=== PATIENT | male | born 1970 ===

== ENCOUNTER 2022-06-07 11:51 | Emergency (ER) | payer OTHER, SELFPAY ==
[2022-06-07 11:55] VITALS: BP 144/96; PULSE 100; RESP 18; TEMP 36.6; O2SAT 99; BMI 30.7
[2022-06-07 11:59] VITALS: O2SAT 97
--- NOTE | 2022-06-07 11:59 | CRLHL7_ITS ---
For Patients: As a result of the Cures Act, medical imaging exams and procedure reports are released immediately into your electronic medical record. You may view this report before your referring provider. If you have questions, please contact your health care provider. INDICATION: Cough. TECHNIQUE: One-view chest. COMPARISON: None. FINDINGS: There is mild hazy left suprahilar opacity. The lungs are otherwise clear. No pleural effusion or pneumothorax is detected. The cardiac silhouette and pulmonary vascularity are within normal limits. IMPRESSION: Mild hazy suprahilar opacity, suspicious for pneumonia in the proper clinical context. Recommend repeat radiographs in 6-8 weeks to ensure resolution. Dictated by Jose Echeverria MD @ 06/07/2022 1:20:53 PM (Electronically Signed)
--- NOTE | 2022-06-07 12:30 | ED_ITS ---
HPI - General Adult General Time Seen by Provider: 12:30 Date Seen: 06/07/22 Chief complaint: Weakness Stated complaint: Low o2, elevated heartrate, weak Time Seen by Provider: 06/07/22 11:59 Source: patient and RN notes reviewed Mode of arrival: ambulatory Limitations: no limitations History of Present Illness HPI narrative: Patient is here for evaluation of elevated heart rate, not feeling well. Has been quite ill with significant coughing the last 2 days. Has had some chest burning type symptoms with this. Cough is nonproductive. No noted fevers but has felt hot and maybe febrile at times. Has checked temperature at home and has been normal. No nausea vomiting or diarrhea. Coughing is quite significant to the point he feels he can not breathe at times. Has known asymptomatic coronary artery disease, probable history of undiagnosed asthma. Nonsmoker. Son at home has tested positive for COVID yesterday. Patient's history is complicated by the fact that he has been having respiratory issues since beginning of April. He had cold-type symptoms, improved and then started having significant coughing night sweats and probable fever, triple swab was negative at that time and patient was initiated on doxycycline. Did seemingly improve. Cough never completely went away but over the last 2 days symptoms really escalated again. Earlier today checked a pulse oximeter at home and O2 sats were 96% but pulse was in the 120 range. Related Data Home Medications Medication Instructions Recorded Confirmed rosuvastatin 10 mg tablet mg 06/07/22 Previous Rx's Medication Instructions Recorded doxycycline monohydrate 100 mg 100 mg PO BID #20 caps 05/14/22 capsule nirmatrelvir 300 mg (150 mg See Rx Instructions PO .COMPLEX 06/07/22 x2)-ritonavir 100 mg tablet,dose #30 ea pack(EUA) (Paxlovid) Allergies Allergy/AdvReac Type Severity Reaction Status Date / Time Penicillins Allergy Verified 06/07/22 11:58 Sulfa (Sulfonamide Allergy Verified 06/07/22 11:58 Antibiotics) Review of Systems Status of ROS: Reports: 6 or more systems reviewed and unremarkable except as noted in History and below PFSH PFSH Social History Smoking Status: Unknown if ever smoked Do you use any of these nicotine containing products: None Non-prescribed substance use: denies use Exam Const: Vital Signs, click to edit/add: Vital Signs - 24 hr 06/07/22 11:55 06/07/22 11:59 Temperature 97.9 F Pulse Rate [Right Pulse Oximeter] 100 Respiratory Rate 18 Blood Pressure [Ri ght Upper Arm] 144/96 H Pulse Oximetry 99 97 Oxygen Delivery Me thod Room Air Common normals: no apparent distress, average body habitus, oriented x3, no limitations, healthy appearing and alert General appearance: cooperative, comfortable, well kempt and well developed Other: Appears a little pale, does cough some during the interaction. HENMT: Common normals: normocephalic, head/scalp atraumatic and hearing grossly normal bilaterally Head and scalp: normocephalic and atraumatic Eye: Common normals: PERRL, EOMs intact bilaterally, conjunctivae normal and no scleral icterus Conjunctiva: conjunctiva(e) normal Pupil: PERRL Neck & C-Spine: Common normals: full ROM, no lymphadenopathy, supple, no meningeal signs, no JVD and thyroid normal Thyroid: thyroid normal Chest: Common normals: inspection of chest normal and palpation of chest normal Resp: Common normals: normal respiratory effort, no retractions, no use of accessory muscles and clear to auscultation bilaterally Auscultation: clear to auscultation bilaterally Cardio: Common normals: no JVD, regular rhythm, S1 normal heart sound, S2 normal heart sound, no gallops, no clicks, no murmurs and no rub Rate: tachycardic Rhythm: regular rhythm Heart sounds: S1 normal and S2 normal Neuro: Common normals: oriented x3 Sensorium/orientation: alert Meningeal signs: no meningeal signs Psych: Appearance: well kempt Course Reevaluation(s) Reevaluation #1: Patient would like to initiate Paxlovid. Given how ill patient is feeling, do think it is reasonable, is in a category for potential worsening. Certainly seems like this acute illness is within the 5 day window and he may benefit from this medicine. Vital Signs Vital signs: Initial Vital Signs Temperature 97.9 F 06/07/22 11:55 Temperature Source Temporal Artery Scan 06/07/22 11:55 Pulse Rate 100 06/07/22 11:55 Respiratory Rate 18 06/07/22 11:55 Blood Pressure 144/96 H 06/07/22 11:55 Blood Pressure Mean 112 06/07/22 11:55 Blood Pressure Position Sitting 06/07/22 11:55 Pulse Oximetry 99 06/07/22 11:55 Oxygen Delivery Method 06/07/22 11:55 Vital Signs Temperature 97.9 F 06/07/22 11:55 Pulse Rate 100 06/07/22 11:55 Respiratory Rate 18 06/07/22 11:55 Blood Pressure 144/96 H 06/07/22 11:55 Pulse Oximetry 99 06/07/22 11:55 Oxygen Delivery Method 06/07/22 11:55 Temperature 97.9 F 06/07/22 11:55 Pulse Rate 100 06/07/22 11:55 Respiratory Rate 18 06/07/22 11:55 Blood Pressure 144/96 H 06/07/22 11:55 Pulse Oximetry 97 06/07/22 11:59 Oxygen Delivery Method 06/07/22 11:55 Medical Decision Making Lab Data Lab results reviewed: Yes I reviewed the patient's lab results Labs: Lab Results 06/07/22 06/07/22 06/07/22 Range/Units 11:59 12:25 12:25 WBC 7.91 (4.50-11.00) K/uL RBC 5.48 (4.30-5.90) m/uL Hgb 16.8 (13.5-17.5) gm/dL Hct 48.5 (37.0-53.0) % MCV 89 (80-100) fL MCH 31 (26-34) pg MCHC 35 (32-36) gm/dL RDW Coeff of Jacquelin 11.8 (11.5-15.5) % Plt Count 185 (140-440) K/uL Neut % (Auto) 79.9 H (42.0-72.0) % Lymph % (Auto) 7.2 L (20-44) % [place] % (Auto) 11.9 H (0.0-11.0) % Eos % (Auto) 0.5 (0.0-7.0) % Baso % (Auto) 0.4 (0.0-3.0) % Neut # (Auto) 6.30 (1.7-7.0) K/uL Lymph # (Auto) 0.60 L (0.90-2.90) K/uL [place] # (Auto) 0.90 (0.00-0.90) K/UL Eos # (Auto) 0.04 (0.00-0.50) K/uL Baso # (Auto) 0.03 (0.00-0.30) K/uL D-Dimer Quant (PE/DVT) (0.00-0.50) ug/ml Sodium 138 (135-149) mmol/L Potassium 3.9 (3.6-5.1) mmol/L Chloride 104 (96-114) mmol/L Carbon Dioxide 23 (20-32) mmol/L BUN 10 (5-24) mg/dL Creatinine 0.7 (0.5-1.5) mg/dL Estimated Creat Clear 135.96 Estimated GFR 113 ml/min Glucose 99 (60-115) mg/dL Calcium 9.3 (8.4-10.6) mg/dL Total Bilirubin 0.8 (0.1-1.5) mg/dL AST 45 H (12-35) U/L ALT 60 H (4-50) U/L Alkaline Phosphatase 76 (40-150) U/L Troponin I QNS C-Reactive Protein 0.6 (0.5-1.0) mg/dL Total Protein 8.2 (6.0-8.3) g/dL Albumin 4.9 (3.3-5.0) g/dL Procalcitonin (<0.50) ng/mL SARS-CoV-2 (PCR) POSITIVE SARS-CoV-2 A (Negative) Influenza Type A (PCR) Negative PCR FLU A (Negative) Influenza Type B (PCR) Negative PCR FLU B (Negative) RSV (PCR) Negative PCR RSV (Negative) POC Troponin I (0.01-0.04) ng/ml 06/07/22 06/07/22 06/07/22 Range/Units 12:25 12:25 15:19 WBC (4.50-11.00) K/uL RBC (4.30-5.90) m/uL Hgb (13.5-17.5) gm/dL Hct (37.0-53.0) % MCV (80-100) fL MCH (26-34) pg MCHC (32-36) gm/dL RDW Coeff of Jacquelin (11.5-15.5) % Plt Count (140-440) K/uL Neut % (Auto) (42.0-72.0) % Lymph % (Auto) (20-44) % [place] % (Auto) (0.0-11.0) % Eos % (Auto) (0.0-7.0) % Baso % (Auto) (0.0-3.0) % Neut # (Auto) (1.7-7.0) K/uL Lymph # (Auto) (0.90-2.90) K/uL [place] # (Auto) (0.00-0.90) K/UL Eos # (Auto) (0.00-0.50) K/uL Baso # (Auto) (0.00-0.30) K/uL D-Dimer Quant (PE/DVT) 0.48 (0.00-0.50) ug/ml Sodium (135-149) mmol/L Potassium (3.6-5.1) mmol/L Chloride (96-114) mmol/L Carbon Dioxide (20-32) mmol/L BUN (5-24) mg/dL Creatinine (0.5-1.5) mg/dL Estimated Creat Clear Estimated GFR ml/min Glucose (60-115) mg/dL Calcium (8.4-10.6) mg/dL Total Bilirubin (0.1-1.5) mg/dL AST (12-35) U/L ALT (4-50) U/L Alkaline Phosphatase (40-150) U/L Troponin I < 0.01 L C-Reactive Protein (0.5-1.0) mg/dL Total Protein (6.0-8.3) g/dL Albumin (3.3-5.0) g/dL Procalcitonin 0.15 (<0.50) ng/mL SARS-CoV-2 (PCR) (Negative) Influenza Type A (PCR) (Negative) Influenza Type B (PCR) (Negative) RSV (PCR) (Negative) POC Troponin I 0.18 H (0.01-0.04) ng/ml Imaging Data Chest x-ray: Attestation: I have reviewed the pertinent imaging results. My impression: Question upper patchy changes on the chest x-ray. Await Radiology over-read. Radiologist's impression: Patient: GIO HECK Facility:?[facility] Patient ID:?[id number] Site Patient ID:?[id number]. Site :?[id number] Study:?XRay Chest PORTABLE-06/07/2022 12:43:00 PM Ordering Physician:Heide Arroyo Final Report: INDICATION: Cough. TECHNIQUE: One-view chest. COMPARISON: None. FINDINGS: There is mild hazy left suprahilar opacity. The lungs are otherwise clear. No pleural effusion or pneumothorax is detected. The cardiac silhouette and pulmonary vascularity are within normal limits. IMPRESSION: Mild hazy suprahilar opacity, suspicious for pneumonia in the proper clinical context. Recommend repeat radiographs in 6-8 weeks to ensure resolution. Dictated by Jose Echeverria MD @ 06/07/2022 1:20:53 PM (Electronic Signature) ECG Data Attestation: I personally reviewed and interpreted this ECG as follows: (Sinus tachycardia, 102 beats per minute. Some artifact particularly in V3. Flipped T-waves lead 3 but otherwise I see no acute ischemic change. QT corrected 443 milliseconds.) Prior ECG tracings: not available for review Critical Care Time Critical Care Time Critical Care Time: No Discharge Plan Discharge Clinical Impression: COVID-19 Condition: Stable Instructions: COVID-19 (Coronavirus Disease 2019) (ED) Additional Instructions: Will have patient refrain from his cholesterol medicine well on treatment for COVID-19. Prescriptions: New Paxlovid (EUA) 300 mg (150 mg x 2)-100 mg tablets,dose pack See Rx Instructions .ROUTE .COMPLEX Qty: 30 0RF Rx Instructions: take TWO 150 mg tablets of nirmatrelvir with ONE 100 mg tablet of ritonavir twice daily for 5 days No Action doxycycline monohydrate 100 mg capsule 100 mg PO BID Qty: 20 0RF rosuvastatin 10 mg tablet Label Comments: TAKE 1 TABLET BY MOUTH DAILY Follow Up/Referrals: Provider,Not a Local [Primary Care Provider] - Stand Alone Forms: [facility] Info Instructions
[2022-06-07 12:45] LABS: Basophils Absolute Auto 0.03 K/uL (0.00-0.30); Basophils Percent Auto 0.4 % (0.0-3.0); Eosinophils Absolute Auto 0.04 K/uL (0.00-0.50); Eosinophils Percent Auto 0.5 % (0.0-7.0); Hematocrit 48.5 % (37.0-53.0); Hemoglobin* 16.8 gm/dL (13.5-17.5); Immature Granulocytes Abs Auto 0.01 K/uL (0.00-0.30); Immature Granulocytes Pct Auto 0.1 %; Lymphocytes Percent Auto 7.2 % (20-44); Mean Corpuscular HGB Conc 35 gm/dL (32-36); Mean Corpuscular Hemoglobin 31 pg (26-34); Mean Corpuscular Volume 89 fL (80-100); Monocytes Percent Auto 11.9 % (0.0-11.0); Neutrophils Percent Auto 79.9 % (42.0-72.0); Platelet Count* 185 K/uL (140-440); RDW Coefficient of Variation % 11.8 % (11.5-15.5); Red Blood Count 5.48 m/uL (4.30-5.90); White Blood Count* 7.91 K/uL (4.50-11.00)
[2022-06-07 12:46] LABS: Slide Review Reflex No
[2022-06-07 12:47] LABS: PCR FLU A Negative PCR FLU A (Negative); PCR FLU B Negative PCR FLU B (Negative); PCR RSV Negative PCR RSV (Negative)
[2022-06-07 12:52] LABS: SARS PCR* POSITIVE SARS-CoV-2 (Negative)
[2022-06-07 12:53] LABS: Troponin, Point-of-Care* 0.18 ng/ml (0.01-0.04)
--- NOTE | 2022-06-07 12:54 | ED.NURSE ---
POC troponin 0.18. MD notified and lab troponin ordered.
[2022-06-07 13:15] LABS: Albumin* 4.9 g/dL (3.3-5.0); Bilirubin Total* 0.8 mg/dL (0.1-1.5); Blood Urea Nitrogen* 10 mg/dL (5-24); Calcium* 9.3 mg/dL (8.4-10.6); Carbon Dioxide* 23 mmol/L (20-32); Chloride* 104 mmol/L (96-114); Creatinine* 0.7 mg/dL (0.5-1.5); Est. Creatinine Clearance* 135.96; Estimated Glomerular Filt Rate 113 ml/min; Glucose* 99 mg/dL (60-115); Potassium* 3.9 mmol/L (3.6-5.1); Sodium* 138 mmol/L (135-149); Total Protein* 8.2 g/dL (6.0-8.3)
[2022-06-07 13:16] LABS: Alanine Aminotransferase* 60 U/L (4-50); Alkaline Phosphatase* 76 U/L (40-150); Aspartate Amino Transferase* 45 U/L (12-35); C Reactive Protein* 0.6 mg/dL (0.5-1.0)
[2022-06-07 13:28] LABS: D Dimer Quantitative* 0.48 ug/ml (0.00-0.50)
[2022-06-07 13:55] LABS: Troponin I* QNS ng/mL (0.01-0.04)
[2022-06-07 16:03] LABS: Troponin I* < 0.01 ng/mL (0.01-0.04)
[2022-06-07 16:06] LABS: Procalcitonin* 0.15 ng/mL (<0.50)
== END 2022-06-07 14:00 | disposition home or self-care (01) ==
PROVIDERS: Emergency Provider Family Medicine
DX: U07.1 COVID-19 (principal)
CPT/HCPCS: 36415; 71045; 80053; 84145; 84484; 85025; 85379; 86140; 87502; 87634; 87635; 93005; 94761; 99283; 99284

== ENCOUNTER 2022-07-05 16:30 | Emergency (ER) | payer OTHER, SELFPAY ==
[2022-07-05] VITALS (14 sets, daily range): BP systolic 140–153; BP diastolic 93–105; PULSE 69–79; RESP 20; O2SAT 96–99
[2022-07-05 17:13] LABS: Basophils Absolute Auto 0.02 K/uL (0.00-0.30); Basophils Percent Auto 0.3 % (0.0-3.0); Eosinophils Absolute Auto 0.06 K/uL (0.00-0.50); Eosinophils Percent Auto 0.9 % (0.0-7.0); Hematocrit 45.5 % (37.0-53.0); Immature Granulocytes Abs Auto 0.01 K/uL (0.00-0.30); Immature Granulocytes Pct Auto 0.1 %; Lymphocytes Absolute Auto 2.03 K/uL (0.90-2.90); Lymphocytes Percent Auto 28.8 % (20-44); Mean Corpuscular HGB Conc 35 gm/dL (32-36); Mean Corpuscular Hemoglobin 31 pg (26-34); Mean Corpuscular Volume 88 fL (80-100); Monocytes Percent Auto 10.2 % (0.0-11.0); Neutrophils Percent Auto 59.7 % (42.0-72.0); Platelet Count* 220 K/uL (140-440); RDW Coefficient of Variation % 11.7 % (11.5-15.5); White Blood Count* 7.04 K/uL (4.50-11.00)
[2022-07-05 17:21] LABS: Troponin, Point-of-Care* 0.01 ng/ml (0.01-0.04)
[2022-07-05 17:22] LABS: Slide Review Reflex No
[2022-07-05 17:28] LABS: Albumin* 4.5 g/dL (3.3-5.0); Chloride* 108 mmol/L (96-114); Potassium* 3.8 mmol/L (3.6-5.1); Sodium* 139 mmol/L (135-149)
[2022-07-05 17:30] LABS: Creatinine* 0.8 mg/dL (0.5-1.5); Est. Creatinine Clearance* 118.96; Estimated Glomerular Filt Rate 108 ml/min
[2022-07-05 17:31] LABS: Alanine Aminotransferase* 44 U/L (4-50); Alkaline Phosphatase* 54 U/L (40-150); Aspartate Amino Transferase* 34 U/L (12-35); Bilirubin Direct* 0.1 mg/dL (0.0-0.5); Bilirubin Total* 0.5 mg/dL (0.1-1.5); Blood Urea Nitrogen* 15 mg/dL (5-24); Carbon Dioxide* 22 mmol/L (20-32); Glucose* 88 mg/dL (60-115); Total Protein* 7.6 g/dL (6.0-8.3)
[2022-07-05 17:32] LABS: Calcium* 8.9 mg/dL (8.4-10.6)
[2022-07-05 17:43] LABS: C Reactive Protein* < 0.5 mg/dL (0.5-1.0); NT Pro B Type NatriureticPept* < 20 pg/mL; Troponin I* < 0.01 ng/mL (0.01-0.04)
[2022-07-05 17:44] LABS: D Dimer Quantitative* < 0.27 ug/ml (0.00-0.50)
--- NOTE | 2022-07-05 18:07 | CRLHL7_ITS ---
For Patients: As a result of the Century Cures Act, medical imaging exams and procedure reports are released immediately into your electronic medical record. You may view this report before your referring provider. If you have questions, please contact your health care provider. INDICATION: chest pain TECHNIQUE: Chest 2 views. COMPARISON: 06/07/22 FINDINGS: Cardiovascular and mediastinum: Heart size and vasculature are normal in caliber and appearance. Mediastinum is within normal limits. Lungs and pleural spaces: Lungs are clear. No sign of infiltrate or mass. No sign of pleural effusion. No pneumothorax. Bones and soft tissues: No significant findings. IMPRESSION: Unremarkable chest. Dictated by: Edison Szymanski MD @ 07/05/2022 18:43:01 (Electronically Signed)
--- NOTE | 2022-07-05 18:46 | ED.CHESTPAIN ---
HPI - Chest Pain General Date Seen: 07/05/22 Chief Complaint: Chest Pain Stated Complaint: Chest Pain Time Seen by Provider: 07/05/22 16:31 Source: patient and family Mode of arrival: ambulatory Limitations: no limitations History of Present Illness HPI narrative: Patient is a 51-year-old male here for evaluation of chest pain, onset today. His is here with him. Reports getting on the treadmill to run today and after a few minutes developing pressure in the center of his chest. He stopped after a few minutes due to the pain. At some point after that the pain resolved although he is not sure how long it took. He did not have accompanying symptoms such as shortness of breath, diaphoresis, nausea or vomiting. Pain did not radiate. He has no history of similar pain, in fact several days ago was able to run on the treadmill for 30 minutes without any difficulty. However, later today he went for a walk with his , who is a physician in the ER here, and after only a block or so noted recurrence of similar pain, so they went home and when he sat down pain resolved. They came in for evaluation. He denies any pleuritic pain. No lower extremity swelling or pain. No fever cough. He is recovering from COVID which he developed just about a month ago. He feels as if his COVID symptoms have just about resolved. He does have a history of coronary artery disease on his mom's side, although not any first-degree relatives. His mom does have a history of cerebral vascular disease with a carotid stent. Patient had a cardiac calcium score at some point in the past and had some disease noted in the LAD, approximately 70%. They are not sure when that was done. He has not had any direct visualization of the coronary arteries, has had a stress test in the past few years which was negative. He takes a baby aspirin daily, did take 4 baby aspirin at home today. He also takes medicine for cholesterol. Denies any other significant health history. Related Data Home Medications Medication Instructions Recorded Confirmed rosuvastatin 10 mg tablet 10 mg PO DAILY 06/07/22 07/05/22 aspirin 81 mg capsule 81 mg PO DAILY 07/05/22 07/05/22 Allergies Allergy/AdvReac Type Severity Reaction Status Date / Time Penicillins Allergy Verified 06/07/22 11:58 Sulfa (Sulfonamide Allergy Verified 06/07/22 11:58 Antibiotics) Review of Systems Status of ROS Reports: 10 or more systems reviewed and unremarkable except as noted in History and below [facility] Social History Smoking Status: Never smoker Do you use any of these nicotine containing products: None Second hand tobacco smoke exposure: No How often do you have a drink containing alcohol: monthly or less How many standard drinks containing alcohol do you have on a typical day: 1 or 2 How often do you have six or more drinks on one occasion: Never AUDIT-C Alcohol total score: 1 Non-prescribed substance use: denies use Exam Narrative Exam Narrative: Vital signs as noted above. In general, an alert, well-appearing patient. Head: Normocephalic, atraumatic. Eyes: Pupils are equal reactive. Extraocular movements are full. Conjunctivae are normal. ENT: Mucous membranes are moist. Throat is normal. Neck: Supple without lymphadenopathy. Heart: Regular rate and rhythm. No murmur or rub. Lungs: Clear bilaterally. No increased work of breathing, crackles or wheezes. Abdomen: Soft and nontender. No organomegaly. Extremities: Well perfused. No edema. No calf tenderness. Pulses intact. Neurologic: Patient is alert and oriented to person and place. Speech is fluent. Face is symmetric. Moves all extremities equally. Affect: Normal. Skin: Warm and dry. Well perfused. Const Vital Signs, click to edit/add: Vital Signs - 24 hr 07/05/22 16:34 07/05/22 16:50 07/05/22 16:36 Pulse Rate Pulse Rate [Pulse Oximeter] 77 Respiratory Rate 20 Blood Pressure 145/98 H Blood Pressure [Left Upper Arm] 145/98 H Pulse Oximetry 98 96 Oxygen Delivery Method Room Air 07/05/22 16:39 07/05/22 16:47 07/05/22 17:00 Pulse Rate 79 73 72 Pulse Rate [Pulse Oximeter] Respiratory Rate Blood Pressure 144/101 H Blood Pressure [Left Upper Arm] Pulse Oximetry 99 97 97 Oxygen Delivery Method 07/05/22 17:01 Pulse Rate 77 Pulse Rate [Pulse Oximeter] Respiratory Rate Blood Pressure 141/93 H Blood Pressure [Left Upper Arm] Pulse Oximetry 96 Oxygen Delivery Method Course Course Hospital Course: On arrival, patient had an EKG which by my review shows a normal sinus rhythm, ventricular rate of 77. No acute ST segment changes, T-waves are normal. Patient did not have any chest pain while here. He had labs including a CBC, basic metabolic panel, LFTs, D-dimer, troponin. These are all normal. Troponin is less than 0.01 and D-dimer is 0.27. Given the negative D-dimer, I did a chest x-ray rather than a chest CT. Chest x-ray by my review is negative. Final radiology report is likewise negative. We discussed possible causes for his chest pain which certainly could be angina based on his health history and family history. However, the fact that he was able to run for 30 minutes a couple of days ago without any symptoms I think is perhaps somewhat less suggestive of coronary artery disease as a cause for his symptoms. Nonetheless, I would recommend that he have a stress test as an outpatient. There is no evidence of pneumonia, COVID or otherwise, on his chest x-ray. No evidence of congestive heart failure or pleural effusion, pneumothorax. His abdomen is benign, I do not think symptoms are likely related to biliary colic or cholecystitis, GERD is a possibility although symptoms with exertion seems less likely. He may be having some component of bronchospasm as he does have a history of mild asthma. We discussed doing a 2nd troponin however given that his is an emergency physician, she feels comfortable with discharge at this time and would prefer that. If he has further problems they will seek medical attention, otherwise I have arranged for a stress test as an outpatient. Return at any time for severe or persistent chest pain. Continue current medications. Vital Signs Vital signs: Initial Vital Signs Pulse Rate 77 07/05/22 16:34 Respiratory Rate 20 07/05/22 16:34 Blood Pressure 145/98 H 07/05/22 16:34 Blood Pressure Mean 113 07/05/22 16:34 Pulse Oximetry 98 07/05/22 16:34 Oxygen Delivery Method 07/05/22 16:34 Vital Signs Pulse Rate 77 07/05/22 16:34 Respiratory Rate 20 07/05/22 16:34 Blood Pressure 145/98 H 07/05/22 16:34 Pulse Oximetry 98 07/05/22 16:34 Oxygen Delivery Method 07/05/22 16:34 Pulse Rate 77 07/05/22 17:01 Respiratory Rate 20 07/05/22 16:34 Blood Pressure 141/93 H 07/05/22 17:01 Pulse Oximetry 96 07/05/22 17:01 Oxygen Delivery Method 07/05/22 16:34 MDM - Chest Pain Lab Data Labs: Lab Results 07/05/22 07/05/22 07/05/22 Range/Units 16:50 17:05 17:05 WBC 7.04 (4.50-11.00) K/uL RBC 5.20 (4.30-5.90) m/uL Hgb 16.0 (13.5-17.5) gm/dL Hct 45.5 (37.0-53.0) % MCV 88 (80-100) fL MCH 31 (26-34) pg MCHC 35 (32-36) gm/dL RDW Coeff of Jacquelin 11.7 (11.5-15.5) % Plt Count 220 (140-440) K/uL Neut % (Auto) 59.7 (42.0-72.0) % Lymph % (Auto) 28.8 (20-44) % [place] % (Auto) 10.2 (0.0-11.0) % Eos % (Auto) 0.9 (0.0-7.0) % Baso % (Auto) 0.3 (0.0-3.0) % Neut # (Auto) 4.20 (1.7-7.0) K/uL Lymph # (Auto) 2.03 (0.90-2.90) K/uL [place] # (Auto) 0.70 (0.00-0.90) K/UL Eos # (Auto) 0.06 (0.00-0.50) K/uL Baso # (Auto) 0.02 (0.00-0.30) K/uL D-Dimer Quant (PE/DVT) < 0.27 (0.00-0.50) ug/ml Sodium (135-149) mmol/L Potassium (3.6-5.1) mmol/L Chloride (96-114) mmol/L Carbon Dioxide (20-32) mmol/L BUN (5-24) mg/dL Creatinine (0.5-1.5) mg/dL Estimated Creat Clear Estimated GFR ml/min Glucose (60-115) mg/dL Calcium (8.4-10.6) mg/dL Total Bilirubin (0.1-1.5) mg/dL Direct Bilirubin (0.0-0.5) mg/dL AST (12-35) U/L ALT (4-50) U/L Alkaline Phosphatase (40-150) U/L Troponin I (0.01-0.04) ng/mL C-Reactive Protein (0.5-1.0) mg/dL NT-Pro-B Natriuret Pep pg/mL Total Protein (6.0-8.3) g/dL Albumin (3.3-5.0) g/dL POC Troponin I 0.01 (0.01-0.04) ng/ml 07/05/22 Range/Units 17:05 WBC (4.50-11.00) K/uL RBC (4.30-5.90) m/uL Hgb (13.5-17.5) gm/dL Hct (37.0-53.0) % MCV (80-100) fL MCH (26-34) pg MCHC (32-36) gm/dL RDW Coeff of Jacquelin (11.5-15.5) % Plt Count (140-440) K/uL Neut % (Auto) (42.0-72.0) % Lymph % (Auto) (20-44) % [place] % (Auto) (0.0-11.0) % Eos % (Auto) (0.0-7.0) % Baso % (Auto) (0.0-3.0) % Neut # (Auto) (1.7-7.0) K/uL Lymph # (Auto) (0.90-2.90) K/uL [place] # (Auto) (0.00-0.90) K/UL Eos # (Auto) (0.00-0.50) K/uL Baso # (Auto) (0.00-0.30) K/uL D-Dimer Quant (PE/DVT) (0.00-0.50) ug/ml Sodium 139 (135-149) mmol/L Potassium 3.8 (3.6-5.1) mmol/L Chloride 108 (96-114) mmol/L Carbon Dioxide 22 (20-32) mmol/L BUN 15 (5-24) mg/dL Creatinine 0.8 (0.5-1.5) mg/dL Estimated Creat Clear 118.96 Estimated GFR 108 ml/min Glucose 88 (60-115) mg/dL Calcium 8.9 (8.4-10.6) mg/dL Total Bilirubin 0.5 (0.1-1.5) mg/dL Direct Bilirubin 0.1 (0.0-0.5) mg/dL AST 34 (12-35) U/L ALT 44 (4-50) U/L Alkaline Phosphatase 54 (40-150) U/L Troponin I < 0.01 L (0.01-0.04) ng/mL C-Reactive Protein < 0.5 L (0.5-1.0) mg/dL NT-Pro-B Natriuret Pep < 20 pg/mL Total Protein 7.6 (6.0-8.3) g/dL Albumin 4.5 (3.3-5.0) g/dL POC Troponin I (0.01-0.04) ng/ml Discharge Plan Discharge Clinical Impression: Chest pain Patient Disposition: Home, Self-Care Condition: Stable Instructions: Chest Pain (DC) Additional Instructions: Follow up for stess test, return for severe or uncontrolled chest pain. Avoid strenuous activity until work up complete. Prescriptions: No Action rosuvastatin 10 mg tablet 10 mg PO DAILY Label Comments: TAKE 1 TABLET BY MOUTH DAILY aspirin 81 mg capsule 81 mg PO DAILY Follow Up/Referrals: Provider,Not a Local [Primary Care Provider] - Stand Alone Forms: [employer] Info Instructions
== END 2022-07-05 18:51 | disposition home or self-care (01) ==
PROVIDERS: Emergency Provider Emergency Medicine
DX: R07.9 Chest pain, unspecified (principal)
CPT/HCPCS: 36415; 71046; 80048; 80076; 83880; 84484; 85025; 85379; 86140; 93005; 94761; 99284

== ENCOUNTER 2022-07-06 10:23 | Emergency (ER) | payer OTHER, SELFPAY ==
[2022-07-06] VITALS (70 sets, daily range): BP systolic 117–152; BP diastolic 76–108; PULSE 63–92; RESP 16; TEMP 36.1–36.7; O2SAT 94–98; BMI 30.4
--- NOTE | 2022-07-06 10:41 | CRLHL7_ITS ---
For Patients: As a result of the Century Cures Act, medical imaging exams and procedure reports are released immediately into your electronic medical record. You may view this report before your referring provider. If you have questions, please contact your health care provider. INDICATION: post covid, sob, CP, intermittent hypoxia TECHNIQUE: CT chest PE was acquired with 95 cc Isovue 370 IV contrast. COMPARISON: None. FINDINGS: Heart and vasculature: Contrast opacification of the pulmonary arterial tree is adequate. No sign of pulmonary embolism. Heart size is normal. Thoracic aorta and pulmonary artery are normal in caliber.Mild coronary artery calcifications. Lungs and pleural: No suspicious nodules or infiltrates. No pleural effusions, pleural thickening, or pneumothorax. Lymph nodes/mediastinum: No mediastinal, hilar, or axillary adenopathy. Chest wall: No masses. Upper abdomen: No acute or significant findings. Bones: Unremarkable for age. IMPRESSION: No evidence of pulmonary embolus. No evidence of acute cardiopulmonary process. Mild coronary artery calcifications. Please note that all CT scans at this facility use dose modulation, iterative reconstruction, and/or weight-based dosing when appropriate to reduce radiation dose to as low as reasonably achievable. Dictated by Timothy Patino MD @ 07/06/2022 12:20:44 PM (Electronically Signed)
[2022-07-06 10:57] LABS: HCO3 VBG 25 mmol/L (21-28); PCO2 VBG 43 mmHG (40-50); PO2 VBG 59.9 mmHG (25-47); pH VBG 7.376 (7.32-7.43)
[2022-07-06 10:59] LABS: Basophils Absolute Auto 0.03 K/uL (0.00-0.30); Basophils Percent Auto 0.4 % (0.0-3.0); Eosinophils Absolute Auto 0.06 K/uL (0.00-0.50); Eosinophils Percent Auto 0.9 % (0.0-7.0); Hematocrit 45.7 % (37.0-53.0); Hemoglobin* 16.1 gm/dL (13.5-17.5); Immature Granulocytes Abs Auto 0.01 K/uL (0.00-0.30); Immature Granulocytes Pct Auto 0.1 %; Lymphocytes Absolute Auto 1.55 K/uL (0.90-2.90); Lymphocytes Percent Auto 23.1 % (20-44); Mean Corpuscular HGB Conc 35 gm/dL (32-36); Mean Corpuscular Hemoglobin 31 pg (26-34); Mean Corpuscular Volume 87 fL (80-100); Monocytes Percent Auto 9.1 % (0.0-11.0); Neutrophils Absolute Auto 4.46 K/uL (1.7-7.0); Neutrophils Percent Auto 66.4 % (42.0-72.0); Platelet Count* 201 K/uL (140-440); Red Blood Count 5.23 m/uL (4.30-5.90); White Blood Count* 6.72 K/uL (4.50-11.00)
[2022-07-06 11:00] LABS: Slide Review Reflex No
--- NOTE | 2022-07-06 11:00 | ED_ITS ---
HPI - SOB/Dyspnea General Time Seen by Provider: 11:00 Date Seen: 07/06/22 Chief Complaint: Shortness of Breath/Dyspnea Stated Complaint: Chest pain Time Seen by Provider: 07/06/22 11:00 Source: patient and old records reviewed History of Present Illness HPI Narrative: Patient is a 51-year-old male presenting to the ER with his with complaint of burning type chest pain that is intermittent. There have been symptoms of lightheadedness shortness of breath episode of diaphoresis accompanying this. Symptoms started on . He noticed it 1st well attempting to run on the treadmill. He then later in the day attempted to go for a walk and felt worsening of his symptoms. He will fill this at rest sometime but rest will often alleviate the symptoms if he is having in the chest pain and rests. He tobar d COVID probably starting sometime on June 05, was here in the ER on June 07 and had a confirmatory PCR. He came into the ER because he was having chest symptoms with cough pain, some chest burning in an tachycardia into the 120s. He was not hypoxic throughout this course until this morning. This morning he was having some increased seen chest burning symptoms. They did try a DuoNeb at home, son has asthma and they have a nebulizer at home. Patient has been suspected through history of maybe having some reactive lung disease. About 40 minutes after the DuoNeb, he went to his stating he was feeling worse and having worsening chest burning, felt some shortness of breath and lightheaded. The pulse oximeter was reading 87-89%, had a good waveform as the pulse oximeter does provide a waveform. With a few deep breaths, pulse oximetry came up to 90-92%. He did go upstairs to shower, after the shower was feeling somewhat poorly, stating just did not feel right. Pulse oximeter at that time was 97% on room air and pulse of 100-102. He has not been having any fevers. No GI symptoms with this. He has an occasional dry cough, that seems to come and go since COVID. It is not anything he would describe as severe. He does have sleep apnea and uses his CPAP. He has hyperlipidemia for which he is on Crestor. He has documented LAD disease on a calcium scoring done through [facility]. Unsure of when his last stress test was, believe it was a stress echo done through Dr. Herman osborne at [facility]. Patient was evaluated in the ER late yesterday afternoon for his symptoms. Laboratory workup including D-dimer was normal, chest x-ray was normal. He was feeling better at time of discharge, stress echo was ordered to be done at a later date. Related Data Home Medications Medication Instructions Recorded Confirmed rosuvastatin 10 mg tablet 10 mg PO DAILY 06/07/22 07/05/22 aspirin 81 mg capsule 81 mg PO DAILY 07/05/22 07/05/22 Allergies Allergy/AdvReac Type Severity Reaction Status Date / Time Penicillins Allergy Verified 07/06/22 11:26 Sulfa (Sulfonamide Allergy Verified 07/06/22 11:26 Antibiotics) Review of Systems Status of ROS: Reports: 10 or more systems reviewed and unremarkable except as noted in History and below Const: Reports: fatigue; Denies: fever, chills or night sweats Eyes: Denies: change in vision or blurry vision ENMT: Denies: throat pain, neck pain, throat swelling or difficulty swallowing Cardio: Reports: chest pain and lightheadedness; Denies: palpitations, edema, swelling of feet/ankles, shortness of breath with exertion or bluish discoloration of hands/feet Resp: Reports: cough; Denies: shortness of breath, wheezing or stridor GI: Denies: abdominal pain, nausea, vomiting, diarrhea or difficulty swallowing : Denies: painful urination or urinary frequency Musculo: Denies: back pain, neck pain, extremity pain or extremity swelling Neuro: Denies: headache, numbness in extremities or weakness in extremities Endo: Reports: fatigue Allergy/Immuno: Denies: throat swelling or wheezing PFSH PFSH Social History Smoking Status: Never smoker Do you use any of these nicotine containing products: None Second hand tobacco smoke exposure: No How often do you have a drink containing alcohol: monthly or less How many standard drinks containing alcohol do you have on a typical day: 1 or 2 How often do you have six or more drinks on one occasion: Never AUDIT-C Alcohol total score: 1 Non-prescribed substance use: denies use Exam Narrative: Exam Narrative: Alert and oriented. Nontoxic in appearance. Eyes are clear. Head is atraumatic and normocephalic. Heart with regular rate and rhythm. No presence of rub or gallop. Repeat exam with patient leaning forward reveals no rub. Lungs are clear. Abdomen soft nontender. Lower extremities without edema. Pedal pulses are symmetrical and intact. Const: Vital Signs, click to edit/add: Vital Signs - 24 hr 07/06/22 10:36 07/06/22 10:41 07/06/22 10:39 Temperature 97.0 F L Pulse Rate 75 Pulse Rate [Pulse Oximeter] 79 Respiratory Rate Blood Pressure Blood Pressure [Ri ght Upper Arm] 133/92 H Pulse Oximetry 97 97 97 Oxygen Delivery Me thod Room Air 07/06/22 10:52 07/06/22 11:00 07/06/22 11:01 Temperature Pulse Rate 72 71 73 Pulse Rate [Pulse Oximeter] Respiratory Rate Blood Pressure 123/90 H Blood Pressure [Ri ght Upper Arm] Pulse Oximetry 97 96 95 Oxygen Delivery Me thod 07/06/22 11:02 07/06/22 11:27 07/06/22 11:30 Temperature Pulse Rate 71 63 72 Pulse Rate [Pulse Oximeter] Respiratory Rate Blood Pressure Blood Pressure [Ri ght Upper Arm] Pulse Oximetry 95 97 97 Oxygen Delivery Me thod 07/06/22 11:32 07/06/22 11:45 07/06/22 12:00 Temperature Pulse Rate 69 66 69 Pulse Rate [Pulse Oximeter] Respiratory Rate Blood Pressure 124/77 Blood Pressure [Ri ght Upper Arm] Pulse Oximetry 95 98 95 Oxygen Delivery Me thod 07/06/22 12:01 07/06/22 12:02 07/06/22 12:15 Temperature Pulse Rate 63 66 67 Pulse Rate [Pulse Oximeter] Respiratory Rate Blood Pressure 131/86 Blood Pressure [Ri ght Upper Arm] Pulse Oximetry 96 96 96 Oxygen Delivery Me thod 07/06/22 12:30 07/06/22 12:32 07/06/22 12:45 Temperature Pulse Rate 69 66 65 Pulse Rate [Pulse Oximeter] Respiratory Rate Blood Pressure 117/80 Blood Pressure [Ri ght Upper Arm] Pulse Oximetry 97 96 97 Oxygen Delivery Me thod 07/06/22 13:00 07/06/22 13:02 07/06/22 13:15 Temperature Pulse Rate 69 68 66 Pulse Rate [Pulse Oximeter] Respiratory Rate Blood Pressure 124/81 Blood Pressure [Ri ght Upper Arm] Pulse Oximetry 97 98 98 Oxygen Delivery Me thod 07/06/22 13:30 07/06/22 13:31 07/06/22 13:45 Temperature Pulse Rate 68 70 68 Pulse Rate [Pulse Oximeter] Respiratory Rate Blood Pressure 123/99 H Blood Pressure [Ri ght Upper Arm] Pulse Oximetry 97 97 96 Oxygen Delivery Me thod 07/06/22 14:00 07/06/22 14:01 07/06/22 14:02 Temperature Pulse Rate 77 73 73 Pulse Rate [Pulse Oximeter] Respiratory Rate Blood Pressure 124/90 H Blood Pressure [Ri ght Upper Arm] Pulse Oximetry 97 97 97 Oxygen Delivery Me thod 07/06/22 14:15 07/06/22 14:30 07/06/22 14:31 Temperature Pulse Rate 72 78 72 Pulse Rate [Pulse Oximeter] Respiratory Rate Blood Pressure 135/90 H Blood Pressure [Ri ght Upper Arm] Pulse Oximetry 97 98 98 Oxygen Delivery Me thod 07/06/22 14:45 07/06/22 15:00 07/06/22 15:02 Temperature Pulse Rate 74 75 80 Pulse Rate [Pulse Oximeter] Respiratory Rate Blood Pressure 134/86 Blood Pressure [Ri ght Upper Arm] Pulse Oximetry 97 97 97 Oxygen Delivery Me thod 07/06/22 15:15 07/06/22 15:30 07/06/22 15:32 Temperature Pulse Rate 76 82 81 Pulse Rate [Pulse Oximeter] Respiratory Rate Blood Pressure 120/89 Blood Pressure [Ri ght Upper Arm] Pulse Oximetry 97 97 97 Oxygen Delivery Me thod 07/06/22 15:45 07/06/22 16:00 07/06/22 16:01 Temperature Pulse Rate 82 71 68 Pulse Rate [Pulse Oximeter] Respiratory Rate Blood Pressure Blood Pressure [Ri ght Upper Arm] Pulse Oximetry 95 96 96 Oxygen Delivery Me thod 07/06/22 16:15 07/06/22 16:30 07/06/22 16:32 Temperature Pulse Rate 72 73 74 Pulse Rate [Pulse Oximeter] Respiratory Rate Blood Pressure 117/97 H Blood Pressure [Ri ght Upper Arm] Pulse Oximetry 96 94 96 Oxygen Delivery Me thod 07/06/22 16:33 07/06/22 16:45 07/06/22 17:00 Temperature Pulse Rate 74 75 81 Pulse Rate [Pulse Oximeter] Respiratory Rate Blood Pressure Blood Pressure [Ri ght Upper Arm] Pulse Oximetry 97 97 96 Oxygen Delivery Me thod 07/06/22 17:01 07/06/22 17:16 07/06/22 17:30 Temperature Pulse Rate 71 72 78 Pulse Rate [Pulse Oximeter] Respiratory Rate Blood Pressure 120/81 Blood Pressure [Ri ght Upper Arm] Pulse Oximetry 96 97 96 Oxygen Delivery Me thod 07/06/22 17:31 07/06/22 17:45 07/06/22 18:00 Temperature Pulse Rate 80 77 81 Pulse Rate [Pulse Oximeter] Respiratory Rate Blood Pressure 122/82 Blood Pressure [Ri ght Upper Arm] Pulse Oximetry 96 96 97 Oxygen Delivery Me thod 07/06/22 18:01 07/06/22 18:02 07/06/22 18:15 Temperature Pulse Rate 84 81 80 Pulse Rate [Pulse Oximeter] Respiratory Rate Blood Pressure 127/76 Blood Pressure [Ri ght Upper Arm] Pulse Oximetry 97 95 95 Oxygen Delivery Me thod 07/06/22 18:32 07/06/22 18:33 07/06/22 18:45 Temperature Pulse Rate 79 79 82 Pulse Rate [Pulse Oximeter] Respiratory Rate Blood Pressure 127/92 H Blood Pressure [Ri ght Upper Arm] Pulse Oximetry 95 95 95 Oxygen Delivery Me thod 07/06/22 19:00 07/06/22 19:01 07/06/22 19:15 Temperature Pulse Rate 77 74 84 Pulse Rate [Pulse Oximeter] Respiratory Rate Blood Pressure 146/93 H Blood Pressure [Ri ght Upper Arm] Pulse Oximetry 97 94 96 Oxygen Delivery Me thod 07/06/22 19:30 07/06/22 19:32 07/06/22 19:45 Temperature Pulse Rate 88 92 77 Pulse Rate [Pulse Oximeter] Respiratory Rate Blood Pressure 138/96 H Blood Pressure [Ri ght Upper Arm] Pulse Oximetry 98 96 96 Oxygen Delivery Me thod 07/06/22 20:00 07/06/22 20:02 07/06/22 20:32 Temperature 98.1 F Pulse Rate 67 71 83 Pulse Rate [Pulse Oximeter] Respiratory Rate 16 Blood Pressure 140/92 H 131/92 H Blood Pressure [Ri ght Upper Arm] Pulse Oximetry 97 96 96 Oxygen Delivery Me thod Documenting provider has reviewed patient's vital signs: yes Course Course Hospital Course: Differential diagnosis includes but is not limited to angina, acute coronary syndrome, PE, viral infection, anxiety, chest wall pain. Laboratory values have been in drawn include a CBC, comprehensive, CRP, sed rate, proBNP, troponin. Will also add influenza and COVID antigen test. Chest x-ray done yesterday. Will obtain chest CT with IV contrast at this time. EKG reassuring. Patient will continue on regional sales associate and oximetry. Reevaluation(s) Reevaluation #1: Initial troponin is negative. CT reassuring at this time. Will await 2nd troponin. Reevaluation #2: Second troponin noted to be positive at 0.06. Will do a lab back up and this is now come back as 0.07. Will speak to Cardiology. Reevaluation #3: Extensive calls for placement. Currently on the waiting list at [facility]. Have also checked with [facility], [facility], [facility] system and there is no availability. Patient has been started on heparin and been given Plavix. Patient notes pain when getting up to the bathroom but at rest he appears pain free. Consultations Consultation #1: Dr. Dill, cardiology consult id. At this time agrees that this is likely a non STEMI. Suggest heparin and Plavix. These have been given. We have been placed on the waiting list. Vital Signs Vital signs: Initial Vital Signs Temperature 97.0 F L 07/06/22 10:36 Temperature Source Temporal Artery Scan 07/06/22 10:36 Pulse Rate 79 07/06/22 10:36 Blood Pressure 133/92 H 07/06/22 10:36 Blood Pressure Mean 105 07/06/22 10:36 Blood Pressure Position Supine 07/06/22 10:36 Pulse Oximetry 97 07/06/22 10:36 Oxygen Delivery Method 07/06/22 10:36 Vital Signs Temperature 97.0 F L 07/06/22 10:36 Pulse Rate 79 07/06/22 10:36 Blood Pressure 133/92 H 07/06/22 10:36 Pulse Oximetry 97 07/06/22 10:36 Oxygen Delivery Method 07/06/22 10:36 Temperature 98.1 F 07/06/22 20:32 Pulse Rate 83 07/06/22 20:32 Respiratory Rate 16 07/06/22 20:32 Blood Pressure 131/92 H 07/06/22 20:32 Pulse Oximetry 96 07/06/22 20:32 Oxygen Delivery Method 07/06/22 10:36 MDM - SOB/Dyspnea MDM Narrative Medical decision making narrative: 1. Non STEMI-no pain at rest. Heparin and Plavix given along with aspirin. We are currently on the waiting list at [facility]. All are other times at transfer to other sites have been futile. This includes [facility], [facility] ([facility]), other [facility] and [facility]. Patient continued to have intermittent discomfort with any sort of activity especially walking to the bathroom. He has been pain-free since the initiation of heparin. He received an initial bolus of 4000 units followed by a drip. Patient also received Plavix and aspirin. 2. Recent COVID infection-antigen negative today. 3. Disposition -on waiting list to go to [facility]. He has been stable. His 3rd troponin is now elevated at 0.17. Patient will stay in the emergency room during the evening and overnight hours. At this time blood pressure now 140/90 and will give atenolol 12.5 mg p.o.. Patient denies any pain. At 1 point he did state he feels like he maybe has a little bit of heartburn but this did not change with ambulation to the bathroom. Previously ambulation caused a burning in his chest. Troponin recheck at 0700 hours and we are hopeful that we will be able to arrange transfer to [facility] for specialty consultation. Patient will be signed out to my partner Dr. Garcia. Medical Records Attestation: I reviewed the patient's medical records. Lab Data Attestation: I reviewed the patient's lab results. Labs: Lab Results 07/06/22 07/06/22 07/06/22 Range/Units 10:43 10:43 10:43 WBC 6.72 (4.50-11.00) K/uL RBC 5.23 (4.30-5.90) m/uL Hgb 16.1 (13.5-17.5) gm/dL Hct 45.7 (37.0-53.0) % MCV 87 (80-100) fL MCH 31 (26-34) pg MCHC 35 (32-36) gm/dL RDW Coeff of Jacquelin 12.0 (11.5-15.5) % Plt Count 201 (140-440) K/uL Neut % (Auto) 66.4 (42.0-72.0) % Lymph % (Auto) 23.1 (20-44) % Smyth % (Auto) 9.1 (0.0-11.0) % Eos % (Auto) 0.9 (0.0-7.0) % Baso % (Auto) 0.4 (0.0-3.0) % Neut # (Auto) 4.46 (1.7-7.0) K/uL Lymph # (Auto) 1.55 (0.90-2.90) K/uL Smyth # (Auto) 0.60 (0.00-0.90) K/UL Eos # (Auto) 0.06 (0.00-0.50) K/uL Baso # (Auto) 0.03 (0.00-0.30) K/uL ESR 4 (2-15) mm/hr INR (0.91-1.10) APTT (23-33) Seconds D-Dimer Quant (PE/DVT) (0.00-0.50) ug/ml VBG pH (7.32-7.43) VBG pCO2 (40-50) mmHG VBG pO2 (25-47) mmHG VBG HCO3 (21-28) mmol/L Sodium (135-149) mmol/L Potassium (3.6-5.1) mmol/L Chloride (96-114) mmol/L Carbon Dioxide (20-32) mmol/L BUN (5-24) mg/dL Creatinine (0.5-1.5) mg/dL Estimated Creat Clear Estimated GFR ml/min Glucose (60-115) mg/dL Calcium (8.4-10.6) mg/dL Total Bilirubin (0.1-1.5) mg/dL AST (12-35) U/L ALT (4-50) U/L Alkaline Phosphatase (40-150) U/L Troponin I (0.01-0.04) ng/mL C-Reactive Protein < 0.5 L (0.5-1.0) mg/dL NT-Pro-B Natriuret Pep pg/mL Total Protein (6.0-8.3) g/dL Albumin (3.3-5.0) g/dL Procalcitonin (<0.50) ng/mL Influenza Type A Ag (Negative) Influenza Type B Ag (Negative) SARS-CoV-2 Ag (Rapid) (Negative) POC Troponin I (0.01-0.04) ng/ml 07/06/22 07/06/22 07/06/22 Range/Units 10:43 10:43 10:43 WBC (4.50-11.00) K/uL RBC (4.30-5.90) m/uL Hgb (13.5-17.5) gm/dL Hct (37.0-53.0) % MCV (80-100) fL MCH (26-34) pg MCHC (32-36) gm/dL RDW Coeff of Jacquelin (11.5-15.5) % Plt Count (140-440) K/uL Neut % (Auto) (42.0-72.0) % Lymph % (Auto) (20-44) % Smyth % (Auto) (0.0-11.0) % Eos % (Auto) (0.0-7.0) % Baso % (Auto) (0.0-3.0) % Neut # (Auto) (1.7-7.0) K/uL Lymph # (Auto) (0.90-2.90) K/uL Smyth # (Auto) (0.00-0.90) K/UL Eos # (Auto) (0.00-0.50) K/uL Baso # (Auto) (0.00-0.30) K/uL ESR (2-15) mm/hr INR (0.91-1.10) APTT (23-33) Seconds D-Dimer Quant (PE/DVT) < 0.27 (0.00-0.50) ug/ml VBG pH 7.376 (7.32-7.43) VBG pCO2 43 (40-50) mmHG VBG pO2 59.9 H (25-47) mmHG VBG HCO3 25 (21-28) mmol/L Sodium 140 (135-149) mmol/L Potassium 4.1 (3.6-5.1) mmol/L Chloride 110 (96-114) mmol/L Carbon Dioxide 24 (20-32) mmol/L BUN 15 (5-24) mg/dL Creatinine 0.7 (0.5-1.5) mg/dL Estimated Creat Clear 135.96 Estimated GFR 113 ml/min Glucose 106 (60-115) mg/dL Calcium 8.9 (8.4-10.6) mg/dL Total Bilirubin 0.6 (0.1-1.5) mg/dL AST 36 H (12-35) U/L ALT 45 (4-50) U/L Alkaline Phosphatase 58 (40-150) U/L Troponin I (0.01-0.04) ng/mL C-Reactive Protein (0.5-1.0) mg/dL NT-Pro-B Natriuret Pep < 20 pg/mL Total Protein 7.6 (6.0-8.3) g/dL Albumin 4.5 (3.3-5.0) g/dL Procalcitonin 0.07 (<0.50) ng/mL Influenza Type A Ag (Negative) Influenza Type B Ag (Negative) SARS-CoV-2 Ag (Rapid) (Negative) POC Troponin I (0.01-0.04) ng/ml 07/06/22 07/06/22 07/06/22 Range/Units 10:44 12:00 12:00 WBC (4.50-11.00) K/uL RBC (4.30-5.90) m/uL Hgb (13.5-17.5) gm/dL Hct (37.0-53.0) % MCV (80-100) fL MCH (26-34) pg MCHC (32-36) gm/dL RDW Coeff of Jacquelin (11.5-15.5) % Plt Count (140-440) K/uL Neut % (Auto) (42.0-72.0) % Lymph % (Auto) (20-44) % Smyth % (Auto) (0.0-11.0) % Eos % (Auto) (0.0-7.0) % Baso % (Auto) (0.0-3.0) % Neut # (Auto) (1.7-7.0) K/uL Lymph # (Auto) (0.90-2.90) K/uL Smyth # (Auto) (0.00-0.90) K/UL Eos # (Auto) (0.00-0.50) K/uL Baso # (Auto) (0.00-0.30) K/uL ESR (2-15) mm/hr INR 0.93 (0.91-1.10) APTT 32 (23-33) Seconds D-Dimer Quant (PE/DVT) (0.00-0.50) ug/ml VBG pH (7.32-7.43) VBG pCO2 (40-50) mmHG VBG pO2 (25-47) mmHG VBG HCO3 (21-28) mmol/L Sodium (135-149) mmol/L Potassium (3.6-5.1) mmol/L Chloride (96-114) mmol/L Carbon Dioxide (20-32) mmol/L BUN (5-24) mg/dL Creatinine (0.5-1.5) mg/dL Estimated Creat Clear Estimated GFR ml/min Glucose (60-115) mg/dL Calcium (8.4-10.6) mg/dL Total Bilirubin (0.1-1.5) mg/dL AST (12-35) U/L ALT (4-50) U/L Alkaline Phosphatase (40-150) U/L Troponin I (0.01-0.04) ng/mL C-Reactive Protein (0.5-1.0) mg/dL NT-Pro-B Natriuret Pep pg/mL Total Protein (6.0-8.3) g/dL Albumin (3.3-5.0) g/dL Procalcitonin (<0.50) ng/mL Influenza Type A Ag (Negative) Influenza Type B Ag (Negative) SARS-CoV-2 Ag (Rapid) N (Negative) POC Troponin I 0.03 (0.01-0.04) ng/ml 07/06/22 07/06/22 07/06/22 Range/Units 12:37 12:45 13:11 WBC (4.50-11.00) K/uL RBC (4.30-5.90) m/uL Hgb (13.5-17.5) gm/dL Hct (37.0-53.0) % MCV (80-100) fL MCH (26-34) pg MCHC (32-36) gm/dL RDW Coeff of Jacquelin (11.5-15.5) % Plt Count (140-440) K/uL Neut % (Auto) (42.0-72.0) % Lymph % (Auto) (20-44) % Smyth % (Auto) (0.0-11.0) % Eos % (Auto) (0.0-7.0) % Baso % (Auto) (0.0-3.0) % Neut # (Auto) (1.7-7.0) K/uL Lymph # (Auto) (0.90-2.90) K/uL Smyth # (Auto) (0.00-0.90) K/UL Eos # (Auto) (0.00-0.50) K/uL Baso # (Auto) (0.00-0.30) K/uL ESR (2-15) mm/hr INR (0.91-1.10) APTT (23-33) Seconds D-Dimer Quant (PE/DVT) (0.00-0.50) ug/ml VBG pH (7.32-7.43) VBG pCO2 (40-50) mmHG VBG pO2 (25-47) mmHG VBG HCO3 (21-28) mmol/L Sodium (135-149) mmol/L Potassium (3.6-5.1) mmol/L Chloride (96-114) mmol/L Carbon Dioxide (20-32) mmol/L BUN (5-24) mg/dL Creatinine (0.5-1.5) mg/dL Estimated Creat Clear Estimated GFR ml/min Glucose (60-115) mg/dL Calcium (8.4-10.6) mg/dL Total Bilirubin (0.1-1.5) mg/dL AST (12-35) U/L ALT (4-50) U/L Alkaline Phosphatase (40-150) U/L Troponin I 0.07 H* (0.01-0.04) ng/mL C-Reactive Protein (0.5-1.0) mg/dL NT-Pro-B Natriuret Pep pg/mL Total Protein (6.0-8.3) g/dL Albumin (3.3-5.0) g/dL Procalcitonin (<0.50) ng/mL Influenza Type A Ag Negative (Negative) Influenza Type B Ag Negative (Negative) SARS-CoV-2 Ag (Rapid) (Negative) POC Troponin I 0.06 H (0.01-0.04) ng/ml 07/06/22 07/06/22 Range/Units 18:05 21:14 WBC (4.50-11.00) K/uL RBC (4.30-5.90) m/uL Hgb (13.5-17.5) gm/dL Hct (37.0-53.0) % MCV (80-100) fL MCH (26-34) pg MCHC (32-36) gm/dL RDW Coeff of Jacquelin (11.5-15.5) % Plt Count (140-440) K/uL Neut % (Auto) (42.0-72.0) % Lymph % (Auto) (20-44) % Smyth % (Auto) (0.0-11.0) % Eos % (Auto) (0.0-7.0) % Baso % (Auto) (0.0-3.0) % Neut # (Auto) (1.7-7.0) K/uL Lymph # (Auto) (0.90-2.90) K/uL Smyth # (Auto) (0.00-0.90) K/UL Eos # (Auto) (0.00-0.50) K/uL Baso # (Auto) (0.00-0.30) K/uL ESR (2-15) mm/hr INR (0.91-1.10) APTT 53 H (23-33) Seconds D-Dimer Quant (PE/DVT) (0.00-0.50) ug/ml VBG pH (7.32-7.43) VBG pCO2 (40-50) mmHG VBG pO2 (25-47) mmHG VBG HCO3 (21-28) mmol/L Sodium (135-149) mmol/L Potassium (3.6-5.1) mmol/L Chloride (96-114) mmol/L Carbon Dioxide (20-32) mmol/L BUN (5-24) mg/dL Creatinine (0.5-1.5) mg/dL Estimated Creat Clear Estimated GFR ml/min Glucose (60-115) mg/dL Calcium (8.4-10.6) mg/dL Total Bilirubin (0.1-1.5) mg/dL AST (12-35) U/L ALT (4-50) U/L Alkaline Phosphatase (40-150) U/L Troponin I 0.17 H* (0.01-0.04) ng/mL C-Reactive Protein (0.5-1.0) mg/dL NT-Pro-B Natriuret Pep pg/mL Total Protein (6.0-8.3) g/dL Albumin (3.3-5.0) g/dL Procalcitonin (<0.50) ng/mL Influenza Type A Ag (Negative) Influenza Type B Ag (Negative) SARS-CoV-2 Ag (Rapid) (Negative) POC Troponin I (0.01-0.04) ng/ml Imaging Data CT scan - chest: Attestation: I have reviewed the pertinent imaging results. My impression: I did not note any large PE. Radiologist's impression: Heart and vasculature: Contrast opacification of the pulmonary arterial tree is adequate. No sign of pulmonary embolism. Heart size is normal. Thoracic aorta and pulmonary artery are normal in caliber.Mild coronary artery calcifications. Lungs and pleural: No suspicious nodules or infiltrates.? No pleural effusions, pleural thickening, or pneumothorax. Lymph nodes/mediastinum: No mediastinal, hilar, or axillary adenopathy. Chest wall: No masses. Upper abdomen: No acute or significant findings. Bones: Unremarkable for age. IMPRESSION: No evidence of pulmonary embolus. No evidence of acute cardiopulmonary process. Mild coronary artery calcifications. ECG Data Attestation: I personally reviewed and interpreted this ECG as follows: ECG interpretation date: 07/06/22 Interpretation: EKG 1. By my read shows sinus rhythm at a rate of 73. Flattening of the T-waves noted in 3 and AVF. Otherwise no evidence of acute ST or T-wave changes. EKG 2. By my read shows sinus rhythm at a rate of 70. I do not note any acute ST or T-wave changes from initial EKG. EKG 3. By my read shows sinus rhythm at a rate 78. No acute ST or T-wave changes are noted. Critical Care Time Critical Care Time Total Critical Care Time in Minutes: 60 Discharge Plan Discharge Clinical Impression: Non-ST elevated myocardial infarction (non-STEMI) Prescriptions: No Action rosuvastatin 10 mg tablet 10 mg PO DAILY Label Comments: TAKE 1 TABLET BY MOUTH DAILY aspirin 81 mg capsule 81 mg PO DAILY Follow Up/Referrals: Provider,Not a Local [Primary Care Provider] -
[2022-07-06 11:12] LABS: Troponin, Point-of-Care* 0.03 ng/ml (0.01-0.04)
[2022-07-06 11:14] LABS: Albumin* 4.5 g/dL (3.3-5.0); Chloride* 110 mmol/L (96-114); Potassium* 4.1 mmol/L (3.6-5.1); Sodium* 140 mmol/L (135-149)
[2022-07-06 11:16] LABS: Aspartate Amino Transferase* 36 U/L (12-35); Bilirubin Total* 0.6 mg/dL (0.1-1.5); Carbon Dioxide* 24 mmol/L (20-32); Creatinine* 0.7 mg/dL (0.5-1.5); Est. Creatinine Clearance* 135.96; Estimated Glomerular Filt Rate 113 ml/min
[2022-07-06 11:17] LABS: Alanine Aminotransferase* 45 U/L (4-50); Alkaline Phosphatase* 58 U/L (40-150); Blood Urea Nitrogen* 15 mg/dL (5-24); Calcium* 8.9 mg/dL (8.4-10.6); Glucose* 106 mg/dL (60-115); Total Protein* 7.6 g/dL (6.0-8.3)
[2022-07-06 11:25] LABS: C Reactive Protein* < 0.5 mg/dL (0.5-1.0)
[2022-07-06 11:29] LABS: NT Pro B Type NatriureticPept* < 20 pg/mL
[2022-07-06 11:34] LABS: Procalcitonin* 0.07 ng/mL (<0.50)
[2022-07-06 11:48] LABS: Erythrocyte SedimentationRate* 4 mm/hr (2-15)
[2022-07-06 12:26] LABS: D Dimer Quantitative* < 0.27 ug/ml (0.00-0.50)
[2022-07-06 12:29] LABS: SARS Antigen* N (Negative)
[2022-07-06 13:06] LABS: Influenza Type A Negative (Negative); Influenza Type B Negative (Negative)
[2022-07-06 13:06] LABS: Troponin, Point-of-Care* 0.06 ng/ml (0.01-0.04)
[2022-07-06] MEDS: ASPIRIN 81 MG TAB.CHEW 324 MG PO (13:12)
[2022-07-06 13:44] LABS: Troponin I* 0.07 ng/mL (0.01-0.04)
--- NOTE | 2022-07-06 13:45 | ED.NURSE ---
Critical call from lab: troponin 0.07. RN and updated.
[2022-07-06] MEDS: HEPARIN 25,000 UNIT/500 ML BAG 20 UNIT IV (14:22)
[2022-07-06 14:23] LABS: INR 0.93 (0.91-1.10); Prothrombin Time 13.1 Seconds
[2022-07-06] MEDS: HEPARIN 5,000 UNIT/0.5 ML INJ 4000 UNIT IVP (14:23)
[2022-07-06 14:24] LABS: Partial Thromboplastin Time* 32 Seconds (23-33)
[2022-07-06] MEDS: CLOPIDOGREL 300 MG TABLET 600 MG PO (14:54)
[2022-07-06 18:49] LABS: Troponin I* 0.17 ng/mL (0.01-0.04)
[2022-07-06 21:47] LABS: Partial Thromboplastin Time* 53 Seconds (23-33)
--- NOTE | 2022-07-06 22:00 | ED.NURSE ---
Addendum entered by Lenard Shay RN 07/06/22 22:18: i agree with Jacqui AMADO with no change in heparin gtt. Original Note: ptt within therapeutic range, no change in rate. verified with Lenard AMADO.
[2022-07-06] MEDS: atenoloL 25 MG TABLET 12.5 MG PO (22:13)
[2022-07-07] VITALS (30 sets, daily range): BP systolic 93–128; BP diastolic 67–90; PULSE 55–76; RESP 16; TEMP 36.8; O2SAT 95–98
[2022-07-07 04:39] LABS: INR 0.93 (0.91-1.10)
[2022-07-07 04:40] LABS: Partial Thromboplastin Time* 46 Seconds (23-33)
[2022-07-07 04:54] LABS: Troponin I* 0.23 ng/mL (0.01-0.04)
--- NOTE | 2022-07-07 04:57 | ED.NURSE ---
Addendum entered by Lenard Shay RN 07/07/22 05:00: verified with Jacqui AMADO with no change in heparin gtt. repeat labs at 1000. Original Note: PTT 46 within therapeutic range. no change in rate. verified with Lenard AMADO.
--- NOTE | 2022-07-07 05:01 | ED.NURSE ---
trop I 0.23. Dr. Garcia updated. pt. chest pain free. heparin gtt infusing per protocol. awaiting for transfer to [facility], is on the waiting list.
--- NOTE | 2022-07-07 07:53 | ED.NURSE ---
check with [facility] this morning shows them still on divert for cardiac
--- NOTE | 2022-07-07 08:19 | ED.NURSE ---
Pt denies pain, did wash up at sink and ambulate to BR. Water to drink ok per Dr. Keita.
[2022-07-07 10:22] LABS: Basophils Absolute Auto 0.02 K/uL (0.00-0.30); Basophils Percent Auto 0.3 % (0.0-3.0); Eosinophils Absolute Auto 0.04 K/uL (0.00-0.50); Eosinophils Percent Auto 0.7 % (0.0-7.0); Hematocrit 46.6 % (37.0-53.0); Hemoglobin* 16.5 gm/dL (13.5-17.5); Immature Granulocytes Abs Auto 0.03 K/uL (0.00-0.30); Immature Granulocytes Pct Auto 0.5 %; Lymphocytes Absolute Auto 1.63 K/uL (0.90-2.90); Lymphocytes Percent Auto 28.1 % (20-44); Mean Corpuscular HGB Conc 35 gm/dL (32-36); Mean Corpuscular Hemoglobin 31 pg (26-34); Mean Corpuscular Volume 87 fL (80-100); Monocytes Percent Auto 7.7 % (0.0-11.0); Neutrophils Absolute Auto 3.64 K/uL (1.7-7.0); Neutrophils Percent Auto 62.7 % (42.0-72.0); Platelet Count* 204 K/uL (140-440); RDW Coefficient of Variation % 11.9 % (11.5-15.5); Red Blood Count 5.33 m/uL (4.30-5.90); White Blood Count* 5.81 K/uL (4.50-11.00)
[2022-07-07 10:36] LABS: Partial Thromboplastin Time* 50 Seconds (23-33); Slide Review Reflex No
[2022-07-07 10:53] LABS: Troponin I* 0.14 ng/mL (0.01-0.04)
--- NOTE | 2022-07-07 11:04 | ED.NURSE ---
Call from lab, trop 0.14, Dr. Keita updated.
[2022-07-07 11:06] LABS: Chloride* 109 mmol/L (96-114); Potassium* 4.1 mmol/L (3.6-5.1); Sodium* 141 mmol/L (135-149)
[2022-07-07 11:08] LABS: Creatinine* 0.7 mg/dL (0.5-1.5); Est. Creatinine Clearance* 135.96; Estimated Glomerular Filt Rate 113 ml/min
[2022-07-07 11:09] LABS: Blood Urea Nitrogen* 12 mg/dL (5-24); Calcium* 9.2 mg/dL (8.4-10.6); Carbon Dioxide* 23 mmol/L (20-32); Glucose* 111 mg/dL (60-115)
--- NOTE | 2022-07-07 11:37 | ED.NURSE ---
Call to [facility], Pt 5th wait list for nstemi. Per Dr. Keita no reason to reconsult with cardiology at this point, will continue to wait for bed and monitor. Call to [facility] bed might open this afternoon, hospitalist will call back.
[2022-07-07] MEDS: HEPARIN 25,000 UNIT/500 ML BAG 20 UNIT IV (12:42)
--- NOTE | 2022-07-07 12:56 | ED.NURSE ---
Report to [facility] RN, waiting for ambulance transfer, heparin infusing.
--- NOTE | 2022-07-07 13:06 | ED.NURSE ---
Pt transfer now to [place] via EMS.
== END 2022-07-07 13:11 | disposition home or self-care (01) ==
PROVIDERS: Family Medicine; Emergency Provider Internal Medicine
DX: I21.4 Non-ST elevation (NSTEMI) myocardial infarction (principal)
CPT/HCPCS: 36415; 71260; 80048; 80053; 82803; 83880; 84145; 84484; 85025; 85379; 85610; 85651; 85730; 86140; 87426; 87804; 93005; 94761; 99285; 99291; A9270; J1644; Q9967

== ENCOUNTER 2022-07-07 13:00 | Outpatient (CLI) | payer OTHER, SELFPAY | END 2022-07-07 13:01 | disposition home or self-care (01) | PROVIDERS: Visit Provider Family Medicine | DX: I21.4 Non-ST elevation (NSTEMI) myocardial infarction (principal) | CPT/HCPCS: A0425; A0434 ==

== ENCOUNTER 2023-01-11 14:03 | Outpatient (CLI) | payer OTHER, SELFPAY ==
[2023-01-11 18:28] LABS: SARS PCR* Negative SARS-CoV-2 (Negative)
== END 2023-01-11 14:04 | disposition home or self-care (01) ==
PROVIDERS: PCP Family Medicine; Visit Provider Family Medicine
DX: R05.9 Cough, unspecified (principal); R53.83 Other fatigue; R07.9 Chest pain, unspecified; R10.13 Epigastric pain; R19.8 Other specified symptoms and signs involving the digestive system and abdomen
CPT/HCPCS: 80053; 84484; 85651; 87635

== ENCOUNTER 2024-03-24 09:46 | Outpatient (CLI) | payer OTHER, SELFPAY | END 2024-03-24 09:47 | disposition home or self-care (01) | LOC: LKVREF 09:53 | PROVIDERS: PCP Family Medicine; Visit Provider Family Medicine | DX: Z12.5 Encounter for screening for malignant neoplasm of prostate (principal) | CPT/HCPCS: G0103 ==

== ENCOUNTER 2024-06-11 08:14 | Outpatient (REF) | payer OTHER, SELFPAY ==
[2024-06-11 09:28] LABS: PCR FLU A POSITIVE PCR FLU A (Negative); PCR FLU B Negative PCR FLU B (Negative); PCR RSV Negative PCR RSV (Negative); SARS PCR* Negative SARS-CoV-2 (Negative)
== END 2024-06-11 08:15 | disposition home or self-care (01) ==
LOC: NPINS 08:14
PROVIDERS: PCP Family Medicine; Visit Provider Family Medicine
DX: Z11.52 Encounter for screening for COVID-19 (principal)
CPT/HCPCS: 87631

== ENCOUNTER 2024-11-05 11:45 | Outpatient (CLI) | payer OTHER, SELFPAY ==
[2024-11-05 12:32] LABS: Chloride* 107 mmol/L (96-114); Potassium* 4.1 mmol/L (3.6-5.1); Sodium* 141 mmol/L (135-149)
[2024-11-05 12:34] LABS: Blood Urea Nitrogen* 11 mg/dL (7-30); Creatinine* 0.6 mg/dL (0.5-1.5); Estimated Glomerular Filt Rate 116 ml/min
[2024-11-05 12:35] LABS: Anion Gap 10 mEq/L (7-15); Calcium* 9.3 mg/dL (8.4-10.6); Carbon Dioxide* 24 mmol/L (20-32); Glucose* 108 mg/dL (60-115)
== END 2024-11-05 11:46 | disposition home or self-care (01) ==
PROVIDERS: PCP Family Medicine; Referring Provider Family Medicine; Visit Provider Family Medicine
DX: I25.10 Atherosclerotic heart disease of native coronary artery without angina pectoris (principal)
CPT/HCPCS: 36415; 80048